=== PATIENT | male | born 1955 | race African-American/Black ===

== ENCOUNTER → 2016-05-21 | Outpatient (CLI) | payer OTHER ==
--- NOTE | 2016-05-21 12:00 | KCIC ---
PROCEDURE Complete abdominal ultrasound. HISTORY Periumbilical pain. TECHNIQUE Real-time ultrasound imaging of the abdomen is performed. COMPARISON None. FINDINGS Due to overlying bowel gas the aorta, IVC, pancreas tail, and spleen are not well seen. The liver measures 13.4 cm in length and is homogeneous in appearance. Portal flow is hepatopetal. The gallbladder appears normal and no gallstones or gallbladder wall thickening is seen. No pericholecystic fluid is seen. No positive Burdick's sign was elicited during transducer examination of the gallbladder. No extrahepatic biliary ductal dilatation is seen and the extrahepatic bile duct measures 3 mm. The right kidney measures 11.3 cm in length and no hydronephrosis or perinephric fluid collection is seen. There are 2 right renal cysts, largest is at the lower pole measuring up to 6.3 cm. The left kidney measures 10.1 cm in length and no hydronephrosis or renal mass or perinephric fluid collection is seen. The spleen measures 9.2 cm in length and is homogeneous in appearance. No focal aneurysmal dilatation of the abdominal aorta is seen. The IVC is unremarkable. No ascites is seen. IMPRESSION 1. No sonographic evidence of gallbladder disease. 2. Right renal cysts. Electronically signed by: Haja Ramires MD (May 21, 2016 11:59:33)
== END | disposition home or self-care (01) ==
LOC: KCIC US 08:22
PROVIDERS: ATTEND Family Medicine
DX: R10.33 Periumbilical pain (principal); N28.1 Cyst of kidney, acquired
CPT/HCPCS: 76700